=== PATIENT | male | born 1960 | race Caucasian/White ===

== ENCOUNTER → 2018-02-10 | Outpatient (CLI) | payer OTHER ==
[~2018-02-10] MED LIST: B-1100 MG PO; LIBRIUM10 MG PO; MULTIPLE VITAMI1 TAB PO; NATURE'S BLEND F1 MG PO
== END | disposition home or self-care (01) ==
LOC: RAD 10:17
DX: M25.551 Pain in right hip (principal)

== ENCOUNTER → 2018-07-06 | Outpatient (CLI) | payer OTHER | END | disposition home or self-care (01) | LOC: MRI 09:28 | DX: M47.817 Spondylosis without myelopathy or radiculopathy, lumbosacral region (principal) ==

== ENCOUNTER → 2018-07-12 | Outpatient (CLI) | payer OTHER ==
[~2018-07-12] MED LIST changes: +ACETAMINOPHEN500 M5 PO; +COLACE100 MG PO; +FLUTIC; +IBUPROFEN600 MG PO; +NORCO 5-325 TA1 EACH PO; +OYSTER SHELL 51 EACH PO; +SALME; +TAMSULOSIN HCL0.4 MG PO; +VITAMIN D35000 UNIT PO; +ZYRTEC10 MG PO; +[UNRECOGNIZED DRUG - OTHER] INH
== END | disposition home or self-care (01) ==
LOC: RAD 12:35
DX: Z13.820 Encounter for screening for osteoporosis (principal); S22.000A Wedge compression fracture of unspecified thoracic vertebra, initial encounter for closed fracture; X58.XXXA Exposure to other specified factors, initial encounter; Y93.89 Activity, other specified; Y92.89 Other specified places as the place of occurrence of the external cause; Y99.8 Other external cause status; Z87.891 Personal history of nicotine dependence

== ENCOUNTER 2018-12-27 16:46 | Emergency (ER) | payer OTHER ==
[~2018-12-27] VITALS: Ht 185.4 cm; Wt 99.8 kg
[2018-12-27 17:14] LABS: BASO % 0.3 % (0.0-1.0); EOS # 0.1 10*3/uL (0.0-0.4); EOS % 1.1 % (1.0-4.0); HEMATOCRIT 53.5 % (42.0-52.0); HEMOGLOBIN 17.2 g/dl (14.0-18.0); LYMPH # 2.6 10*3/uL (1.3-4.4); LYMPH % 24.2 % (27.0-41.0); MEAN CELL VOLUME 94.5 fl (80.0-94.0); MEAN CORPUSCULAR HGB 30.4 pg (27.0-31.0); MEAN CORPUSCULAR HGB CONC 32.1 g/dl (33.0-37.0); MEAN PLATELET VOLUME 10.1 fl (9.6-12.3); MONO # 0.9 10*3/uL (0.1-1.0); MONO % 8.3 % (3.0-9.0); NEUT # 7.1 10*3/uL (2.3-7.9); NEUT % 65.8 % (47.0-73.0); PLATELET COUNT AUTOMATED 194 10*3/uL (130-400); RED BLOOD COUNT 5.66 10*6/uL (4.50-5.90); RED CELL DISTRI WIDTH 13.2 % (0-14.5); WHITE BLOOD COUNT 10.8 10*3/uL (4.8-10.8)
[2018-12-27 17:27] LABS: ACT PARTIAL THROMBO TIME 21.3 SECONDS (20.0-32.1); INTERNATIONAL NORM RATIO 0.9 (2.0-3.5)
[2018-12-27 17:30] LABS: ALBUMIN 4.2 gm/dl (3.1-4.5); ALKALINE PHOSPHATASE 79 U/L (45-117); BUN 8 mg/dl (7-24); CHLORIDE 103 mmol/L (98-107); LIPASE 188 U/L (73-393); POTASSIUM 3.9 mmol/L (3.5-5.1); SGOT/AST 20 IU/L (3-35); SGPT/ALT 30 U/L (12-78); SODIUM 136 mmol/L (136-145); TOTAL PROTEIN 7.8 gm/dL (6.4-8.2)
[2018-12-27 19:21] LABS: BILIRUBIN NEGATIVE (NEGATIVE); BLOOD NEGATIVE (NEGATIVE); CLARITY CLEAR (CLEAR); COLOR YELLOW (YELLOW); GLUCOSE NEGATIVE (NEGATIVE); KETONE NEGATIVE (NEGATIVE); LEUKO ESTERASE NEGATIVE (NEGATIVE); NITRITE NEGATIVE (NEGATIVE); PH 6.5 (5.0-9.0); SPECIFIC GRAVITY <= 1.005 (1.005-1.030); UROBILINOGEN 0.2 E.U./dl (0.2-1.0)
[2018-12-27 19:28] LABS: EPITHELIAL CELLS 0-2
[2018-12-27] MEDS ORDERED: NORCO 5-325 TA1 EACH PO (20:52)
== END 2018-12-27 21:04 | disposition home or self-care (01) ==
LOC: ED 16:46
PROVIDERS: Physician Assistant
DX: K40.21 Bilateral inguinal hernia, without obstruction or gangrene, recurrent (principal); Z79.899 Other long term (current) drug therapy

== ENCOUNTER → 2019-01-23 | Day surgery (SDC) | payer OTHER ==
[2019-01-19 12:46] LABS: BUN 7 mg/dl (7-24); CHLORIDE 104 mmol/L (98-107); CREATININE 0.81 mg/dL (0.70-1.30); POTASSIUM 3.8 mmol/L (3.5-5.1); SODIUM 139 mmol/L (136-145)
[2019-01-23] VITALS (7 sets, daily range): BP systolic 112–120; BP diastolic 54–87
[~2019-01-23] VITALS: Ht 185.4 cm; Wt 99.8 kg
[~2019-01-23] MED LIST changes: +NORCO 7.5-3251 EACH PO
--- NOTE | ~2019-01-23 | EKG ---
[place], [place] ELECTROCARDIOGRAM REPORT NAME: AYANA DYSON UNIT #: [id number] ROOM: DOCTOR: EPIPHANY DRAFT REPORT BIRTHDATE: [birth year] [facility] Test Date: 2019-01-19 Test Time: 12:27:11 Pat Name: AYANA DYSON Department: Room: Gender: M Windows Infrastructure Engineer: Vanessa Tsang : 1960 Requested By: VILLA TERRELL Order Number: [id number] Reading MD: Gabino Yancey Measurements Intervals Wheeler Rate: 72 P: 65 DE: 148 QRS: -30 QRSD: 100 T: 34 QT: 387 QTc: 424 Interpretive Statements Sinus rhythm Abnormal R-wave progression, early transition Inferior infarct, old Compared to ECG 11/17/2018 11:13:13 Myocardial infarct finding now present Electronically Signed On 01-20-2019 12:27:38 PDT by Gabino Yancey CM:EKGRPT:ELECTROCARDIOGRAM REPORT 1227 1227 VILLA TERRELL MD EPIPHANY DRAFT REPORT VILLA TERRELL MD
== END | disposition home or self-care (01) ==
LOC: SDC 01-19 13:15
DX: K40.91 Unilateral inguinal hernia, without obstruction or gangrene, recurrent (principal); D17.6 Benign lipomatous neoplasm of spermatic cord; K44.9 Diaphragmatic hernia without obstruction or gangrene; J44.9 Chronic obstructive pulmonary disease, unspecified; Z98.890 Other specified postprocedural states; Z79.899 Other long term (current) drug therapy; Z82.5 Family history of asthma and other chronic lower respiratory diseases; Z83.3 Family history of diabetes mellitus

== ENCOUNTER → 2020-03-12 | Outpatient (CLI) | payer OTHER ==
[2020-03-12 10:46] LABS: BASO % 0.1 % (0.0-1.0); EOS # 0.1 10*3/uL (0.0-0.4); EOS % 1.7 % (1.0-4.0); HEMATOCRIT 50.2 % (42.0-52.0); LYMPH # 1.9 10*3/uL (1.3-4.4); MEAN CELL VOLUME 98.4 fl (80.0-94.0); MEAN CORPUSCULAR HGB 31.6 pg (27.0-31.0); MEAN CORPUSCULAR HGB CONC 32.1 g/dl (33.0-37.0); MEAN PLATELET VOLUME 9.3 fl (9.6-12.3); MONO # 0.8 10*3/uL (0.1-1.0); MONO % 10.4 % (3.0-9.0); NEUT # 4.6 10*3/uL (2.3-7.9); NEUT % 62.3 % (47.0-73.0); PLATELET COUNT AUTOMATED 191 10*3/uL (130-400); RED CELL DISTRI WIDTH 14.1 % (0-14.5); WHITE BLOOD COUNT 7.5 10*3/uL (4.8-10.8)
[2020-03-12 11:03] LABS: ALBUMIN 3.6 gm/dl (3.1-4.5); ALKALINE PHOSPHATASE 74 U/L (45-117); BUN 8 mg/dl (7-24); CHLORIDE 105 mmol/L (98-107); CHOLESTEROL 157 mg/dL (<200); CREATININE 0.86 mg/dL (0.70-1.30); FREE T4 1.08 ng/dl (0.76-1.46); HDL CHOLESTEROL 72 mg/dl (40-60); LDL CHOLESTEROL 56 mg/dL (9-159); POTASSIUM 3.6 mmol/L (3.5-5.1); SGOT/AST 18 IU/L (3-35); SGPT/ALT 29 U/L (12-78); SODIUM 140 mmol/L (136-145); TOTAL PROTEIN 6.7 gm/dL (6.4-8.2); TRIGLYCERIDES 144 mg/dl (<150); VLDL CHOLESTEROL 29 mg/dL (6-40)
[2020-03-13 13:09] LABS: PROSTATE SPECIFIC AG FREE 0.67 ng/mL; PROSTATE SPECIFIC AG, SERUM 3.8 ng/mL (0.0-4.0)
== END | disposition home or self-care (01) ==
LOC: LAB 10:27
PROVIDERS: ATTEND Family Medicine
DX: M25.511 Pain in right shoulder (principal); R42 Dizziness and giddiness; E55.9 Vitamin D deficiency, unspecified; N40.0 Benign prostatic hyperplasia without lower urinary tract symptoms; E66.9 Obesity, unspecified

== ENCOUNTER → 2021-12-16 | Outpatient (CLI) | payer OTHER | END | disposition home or self-care (01) | LOC: US 02:34 | PROVIDERS: ATTEND Internal Medicine | DX: K40.90 Unilateral inguinal hernia, without obstruction or gangrene, not specified as recurrent (principal); N50.3 Cyst of epididymis; N43.3 Hydrocele, unspecified ==

== ENCOUNTER → 2021-12-24 | Outpatient (CLI) | payer OTHER ==
[2021-12-24 15:00] LABS: BASO % 0.2 % (0.0-1.0); EOS # 0.1 10*3/uL (0.0-0.4); EOS % 0.6 % (1.0-4.0); HEMATOCRIT 51.8 % (42.0-52.0); LYMPH # 1.3 10*3/uL (1.3-4.4); LYMPH % 16.2 % (27.0-41.0); MEAN CELL VOLUME 107.2 fl (80.0-94.0); MEAN CORPUSCULAR HGB 36.4 pg (27.0-31.0); MEAN PLATELET VOLUME 9.2 fl (9.6-12.3); MONO # 0.8 10*3/uL (0.1-1.0); MONO % 9.8 % (3.0-9.0); NEUT # 5.8 10*3/uL (2.3-7.9); NEUT % 72.5 % (47.0-73.0); PLATELET COUNT AUTOMATED 154 10*3/uL (130-400); RED BLOOD COUNT 4.83 10*6/uL (4.50-5.90); RED CELL DISTRI WIDTH 13.2 % (0-14.5)
[2021-12-24 15:21] LABS: ALKALINE PHOSPHATASE 100 U/L (45-117); BUN 10 mg/dl (7-24); CHLORIDE 104 mmol/L (98-107); CREATININE 0.71 mg/dL (0.70-1.30); SGOT/AST 32 IU/L (3-35); SGPT/ALT 31 U/L (12-78); SODIUM 136 mmol/L (136-145); TOTAL PROTEIN 7.1 gm/dL (6.4-8.2)
[2021-12-28 22:05] LABS: FREE PSA 0.419 ng/mL (.)
== END | disposition home or self-care (01) ==
LOC: LAB 14:34
PROVIDERS: ATTEND Urology
DX: R97.20 Elevated prostate specific antigen [PSA] (principal); R53.83 Other fatigue

== ENCOUNTER → 2022-02-04 | Day surgery (SDC) | payer OTHER ==
[2022-02-02 14:41] VITALS: BP 154/88
[~2022-02-04] VITALS: Ht 182.8 cm; Wt 93.0 kg
[2022-02-04] VITALS (7 sets, daily range): BP systolic 122–141; BP diastolic 73–92
[~2022-02-04] MED LIST changes: +ATIVAN0.5 MG PO; +ONDANSETRON HYDR4 M1 PO; +PERCOCET 5-3251 EACH PO; +THE MEDICINE SH10 M1 PO
== END | disposition home or self-care (01) ==
LOC: SDC 01-25 13:15
PROVIDERS: ATTEND Surgery
DX: K40.31 Unilateral inguinal hernia, with obstruction, without gangrene, recurrent (principal); J44.9 Chronic obstructive pulmonary disease, unspecified; F41.9 Anxiety disorder, unspecified; M19.90 Unspecified osteoarthritis, unspecified site; F32.9 Major depressive disorder, single episode, unspecified; Z79.899 Other long term (current) drug therapy

== ENCOUNTER → 2022-03-30 | Outpatient (CLI) | payer OTHER ==
[2022-03-30 15:28] LABS: BASO % 0.1 % (0.0-1.0); EOS % 0.2 % (1.0-4.0); HEMATOCRIT 52.7 % (42.0-52.0); LYMPH # 1.3 10*3/uL (1.3-4.4); LYMPH % 16.2 % (27.0-41.0); MEAN CELL VOLUME 105.8 fl (80.0-94.0); MEAN CORPUSCULAR HGB 35.3 pg (27.0-31.0); MEAN CORPUSCULAR HGB CONC 33.4 g/dl (33.0-37.0); MEAN PLATELET VOLUME 8.9 fl (9.6-12.3); MONO # 0.8 10*3/uL (0.1-1.0); MONO % 9.8 % (3.0-9.0); NEUT # 5.9 10*3/uL (2.3-7.9); NEUT % 73.3 % (47.0-73.0); PLATELET COUNT AUTOMATED 165 10*3/uL (130-400); RED BLOOD COUNT 4.98 10*6/uL (4.50-5.90); RED CELL DISTRI WIDTH 13.8 % (0-14.5); WHITE BLOOD COUNT 8.1 10*3/uL (4.8-10.8)
[2022-03-30 15:45] LABS: ALKALINE PHOSPHATASE 92 U/L (45-117); BUN 10 mg/dl (7-24); CHLORIDE 103 mmol/L (98-107); CREATININE 0.82 mg/dL (0.70-1.30); POTASSIUM 4.1 mmol/L (3.5-5.1); SGOT/AST 19 IU/L (3-35); SGPT/ALT 24 U/L (12-78); SODIUM 139 mmol/L (136-145); TOTAL PROTEIN 7.5 gm/dL (6.4-8.2)
== END | disposition home or self-care (01) ==
LOC: LAB 14:53
PROVIDERS: ATTEND Urology
DX: I10 Essential (primary) hypertension (principal); R53.83 Other fatigue; R97.20 Elevated prostate specific antigen [PSA]

== ENCOUNTER 2022-06-09 14:35 | Emergency (ER) | payer OTHER ==
[~2022-06-09] VITALS: Ht 182.8 cm; Wt 92.5 kg
[2022-06-09] MEDS ORDERED: IBUPROFEN600 MG PO (17:59)
== END 2022-06-09 18:15 | disposition home or self-care (01) ==
LOC: ED 14:35
DX: S46.211A Strain of muscle, fascia and tendon of other parts of biceps, right arm, initial encounter (principal); Z79.899 Other long term (current) drug therapy; X58.XXXA Exposure to other specified factors, initial encounter; Y93.89 Activity, other specified; Y92.89 Other specified places as the place of occurrence of the external cause; Y99.8 Other external cause status

== ENCOUNTER → 2022-09-29 | Outpatient (CLI) | payer OTHER ==
[~2022-09-29] MED LIST changes: +DULE1ARO INH; +SENNA LAX8.6 M1 PO; +TRAZODONE50 MG PO
== END | disposition home or self-care (01) ==
LOC: CARD 01:49
PROVIDERS: ATTEND Internal Medicine
DX: R06.02 Shortness of breath (principal)

== ENCOUNTER 2023-05-23 12:43 | Emergency (ER) | payer OTHER ==
[~2023-05-23] VITALS: Ht 187.9 cm; Wt 68.9 kg
[~2023-05-23 12:43] MED LIST changes: +CYMBALTA30 MG PO; +NATURE'S BLEND100 M2 PO; +OYSTER SHELL 51 EAC5 PO; -SENNA LAX8.6 M1 PO; +SENNA8.6 MG PO; +TAB-A-VITE TA400 MCG PO; +TENORMIN25 MG PO
[2023-05-23 13:36] LABS: BASO % 0.3 % (0.0-1.0); EOS % 0.3 % (1.0-4.0); HEMATOCRIT 47.4 % (42.0-52.0); LYMPH # 0.5 10*3/uL (1.3-4.4); LYMPH % 12.4 % (27.0-41.0); MEAN CORPUSCULAR HGB 32.9 pg (27.0-31.0); MEAN CORPUSCULAR HGB CONC 32.9 g/dl (33.0-37.0); MEAN PLATELET VOLUME 9.6 fl (9.6-12.3); MONO # 0.5 10*3/uL (0.1-1.0); MONO % 13.1 % (3.0-9.0); NEUT # 2.9 10*3/uL (2.3-7.9); NEUT % 73.6 % (47.0-73.0); PLATELET COUNT AUTOMATED 88 10*3/uL (130-400); RED BLOOD COUNT 4.74 10*6/uL (4.50-5.90); RED CELL DISTRI WIDTH 13.3 % (0-14.5)
[2023-05-23 13:52] LABS: ACT PARTIAL THROMBO TIME 29.6 SECONDS (20.0-32.1)
[2023-05-23 13:58] LABS: ALKALINE PHOSPHATASE 133 U/L (46-116); CHLORIDE 104 mmol/L (98-107); LIPASE 40 U/L (12-53); POTASSIUM 3.1 mmol/L (3.4-5.1); SGPT/ALT 28 U/L (5-49); TOTAL PROTEIN 5.8 gm/dL (6.0-8.0)
[2023-05-23 14:00] LABS: BUN < 5 mg/dl (9-23)
[2023-05-23] MEDS ORDERED: PERCOCET 5-3251 EACH PO (16:28)
== END 2023-05-23 17:41 | disposition home or self-care (01) ==
LOC: ED 12:43
PROVIDERS: Internal Medicine
DX: S32.019A Unspecified fracture of first lumbar vertebra, initial encounter for closed fracture (principal); R60.0 Localized edema; J44.9 Chronic obstructive pulmonary disease, unspecified; F41.9 Anxiety disorder, unspecified; M19.90 Unspecified osteoarthritis, unspecified site; Z98.890 Other specified postprocedural states; F17.210 Nicotine dependence, cigarettes, uncomplicated; Z20.822 Contact with and (suspected) exposure to COVID-19; W19.XXXA Unspecified fall, initial encounter; Y93.89 Activity, other specified; Y92.009 Unspecified place in unspecified non-institutional (private) residence as the place of occurrence of the external cause; Y99.8 Other external cause status

== ENCOUNTER 2023-05-24 18:47 | Emergency (ER) | payer OTHER ==
[~2023-05-24] VITALS: Ht 190.5 cm; Wt 88.5 kg
[2023-05-24 20:44] LABS: BASO % 0.2 % (0.0-1.0); EOS % 0.2 % (1.0-4.0); HEMATOCRIT 52.2 % (42.0-52.0); LYMPH # 0.5 10*3/uL (1.3-4.4); MEAN CELL VOLUME 100.2 fl (80.0-94.0); MEAN CORPUSCULAR HGB 33.2 pg (27.0-31.0); MEAN CORPUSCULAR HGB CONC 33.1 g/dl (33.0-37.0); MEAN PLATELET VOLUME 10.3 fl (9.6-12.3); MONO % 8.4 % (3.0-9.0); NEUT # 10.7 10*3/uL (2.3-7.9); NEUT % 86.2 % (47.0-73.0); PLATELET COUNT AUTOMATED 78 10*3/uL (130-400); RED BLOOD COUNT 5.21 10*6/uL (4.50-5.90); RED CELL DISTRI WIDTH 13.4 % (0-14.5); WHITE BLOOD COUNT 12.4 10*3/uL (4.8-10.8)
[2023-05-24 21:09] LABS: ALKALINE PHOSPHATASE 142 U/L (46-116); CHLORIDE 99 mmol/L (98-107); POTASSIUM 3.2 mmol/L (3.4-5.1); SGPT/ALT 36 U/L (5-49); TOTAL PROTEIN 6.8 gm/dL (6.0-8.0)
[2023-05-24 21:16] LABS: BUN < 5 mg/dl (9-23)
== END 2023-05-24 23:14 | disposition home or self-care (01) ==
LOC: ED 18:47
PROVIDERS: Physician Assistant Medical
DX: S32.019D Unspecified fracture of first lumbar vertebra, subsequent encounter for fracture with routine healing (principal); M54.50 Low back pain, unspecified; J44.9 Chronic obstructive pulmonary disease, unspecified; F41.9 Anxiety disorder, unspecified; J10.1 Influenza due to other identified influenza virus with other respiratory manifestations; Z98.890 Other specified postprocedural states; F10.10 Alcohol abuse, uncomplicated; W19.XXXD Unspecified fall, subsequent encounter

== ENCOUNTER 2023-05-26 23:27 | Inpatient (IN) | payer OTHER ==
[~2023-05-26] VITALS: Ht 187.9 cm; Wt 69.5 kg
[2023-05-26 22:00] VITALS: BP 109/54
[2023-05-26 23:27] VITALS: BP 86/60
[2023-05-27] VITALS (19 sets, daily range): BP systolic 84–113; BP diastolic 54–81
[2023-05-27 00:09] LABS: BASO % 0.2 % (0.0-1.0); EOS % 0.2 % (1.0-4.0); HEMATOCRIT 53.2 % (42.0-52.0); LYMPH # 0.4 10*3/uL (1.3-4.4); LYMPH % 3.7 % (27.0-41.0); MEAN CELL VOLUME 100.6 fl (80.0-94.0); MEAN CORPUSCULAR HGB 33.1 pg (27.0-31.0); MEAN CORPUSCULAR HGB CONC 32.9 g/dl (33.0-37.0); MONO # 0.5 10*3/uL (0.1-1.0); MONO % 5.4 % (3.0-9.0); NEUT % 89.7 % (47.0-73.0); PLATELET COUNT AUTOMATED 70 10*3/uL (130-400); RED BLOOD COUNT 5.29 10*6/uL (4.50-5.90); RED CELL DISTRI WIDTH 13.4 % (0-14.5)
[2023-05-27 00:25] LABS: ACT PARTIAL THROMBO TIME 32.1 SECONDS (20.0-32.1)
[2023-05-27 00:34] LABS: ALKALINE PHOSPHATASE 108 U/L (46-116); BUN 10 mg/dl (9-23); CHLORIDE 97 mmol/L (98-107); ETHYL ALCOHOL < 3.0 mg/dl (<3); LIPASE 57 U/L (12-53); POTASSIUM 3.3 mmol/L (3.4-5.1); SGPT/ALT 43 U/L (5-49); TOTAL PROTEIN 6.5 gm/dL (6.0-8.0)
[2023-05-27 07:08] LABS: ARTERIAL BLOOD GAS PH 7.364 (7.35-7.45)
[2023-05-27 07:21] LABS: HEMATOCRIT 43.9 % (42.0-52.0); MEAN CELL VOLUME 100.7 fl (80.0-94.0); MEAN CORPUSCULAR HGB 33.3 pg (27.0-31.0); MEAN PLATELET VOLUME 10.6 fl (9.6-12.3); NUCLEATED RED BLOOD CELL 0.3 % (0.0-0.0); PLATELET COUNT AUTOMATED 54 10*3/uL (130-400); RED BLOOD COUNT 4.36 10*6/uL (4.50-5.90); RED CELL DISTRI WIDTH 13.4 % (0-14.5); WHITE BLOOD COUNT 7.8 10*3/uL (4.8-10.8)
[2023-05-27 07:28] LABS: MANUAL DIFF REFLEX YES
[2023-05-27 07:37] LABS: ALKALINE PHOSPHATASE 76 U/L (46-116); BUN 7 mg/dl (9-23); CHLORIDE 103 mmol/L (98-107); POTASSIUM 3.3 mmol/L (3.4-5.1); SGPT/ALT 34 U/L (5-49); TOTAL PROTEIN 5.1 gm/dL (6.0-8.0)
[2023-05-27 07:45] LABS: PLATELET SUFFICIENCY LOW (NORMAL); TOTAL CELLS COUNTED 100 #CELLS
[2023-05-27 08:06] LABS: BILIRUBIN 1+ (Negative); BLOOD 2+ (Negative); CLARITY Clear (Clear); COLOR Dark Yellow (Yellow); GLUCOSE Negative (Negative); KETONE Trace (Negative); LEUKO ESTERASE Negative (Negative); NITRITE Negative (Negative); PH 6.5 (4.5-8.0)
[2023-05-27 08:13] LABS: URINE AMPHETAMINES Negative (1000ng/ml); URINE BARBITURATES Negative (200ng/ml); URINE BENZODIAZEPINES Negative (200ng/ml); URINE CANNABINOIDS (THC) Positive (50ng/ml); URINE COCAINE Negative (300ng/ml); URINE METHADONE Negative (300ng/ml); URINE OPIATES Negative (300ng/ml); URINE PHENCYCLIDINE Negative (25ng/ml)
[2023-05-27 08:19] LABS: BACTERIA 2+
[2023-05-27 08:20] LABS: MUCOUS 2+
[2023-05-28] VITALS (11 sets, daily range): BP systolic 68–113; BP diastolic 47–78
[2023-05-28 05:56] LABS: ALKALINE PHOSPHATASE 79 U/L (46-116); BUN 10 mg/dl (9-23); CHLORIDE 103 mmol/L (98-107); POTASSIUM 3.8 mmol/L (3.4-5.1); SGPT/ALT 41 U/L (5-49); TOTAL PROTEIN 5.2 gm/dL (6.0-8.0)
[2023-05-28 06:27] LABS: BASO % 0.3 % (0.0-1.0); EOS # 0.1 10*3/uL (0.0-0.4); EOS % 0.8 % (1.0-4.0); HEMATOCRIT 50.1 % (42.0-52.0); LYMPH # 0.6 10*3/uL (1.3-4.4); LYMPH % 4.4 % (27.0-41.0); MEAN CELL VOLUME 103.7 fl (80.0-94.0); MEAN CORPUSCULAR HGB 32.7 pg (27.0-31.0); MEAN CORPUSCULAR HGB CONC 31.5 g/dl (33.0-37.0); MEAN PLATELET VOLUME 11.5 fl (9.6-12.3); MONO # 0.8 10*3/uL (0.1-1.0); MONO % 5.9 % (3.0-9.0); NEUT # 11.3 10*3/uL (2.3-7.9); NUCLEATED RED BLOOD CELL 0.3 % (0.0-0.0); PLATELET COUNT AUTOMATED 67 10*3/uL (130-400); RED BLOOD COUNT 4.83 10*6/uL (4.50-5.90); RED CELL DISTRI WIDTH 13.5 % (0-14.5)
[2023-05-29] VITALS (14 sets, daily range): BP systolic 82–107; BP diastolic 54–68
[2023-05-29 06:11] LABS: BUN 11 mg/dl (9-23); CHLORIDE 110 mmol/L (98-107); POTASSIUM 3.6 mmol/L (3.4-5.1)
[2023-05-29 06:27] LABS: HEMATOCRIT 43.8 % (42.0-52.0); MEAN CORPUSCULAR HGB 32.5 pg (27.0-31.0); MEAN CORPUSCULAR HGB CONC 30.4 g/dl (33.0-37.0); MEAN PLATELET VOLUME 12.2 fl (9.6-12.3); NUCLEATED RED BLOOD CELL 0.4 % (0.0-0.0); PLATELET COUNT AUTOMATED 52 10*3/uL (130-400); RED BLOOD COUNT 4.09 10*6/uL (4.50-5.90); RED CELL DISTRI WIDTH 13.3 % (0-14.5); WHITE BLOOD COUNT 4.7 10*3/uL (4.8-10.8)
[2023-05-29 06:29] LABS: MANUAL DIFF REFLEX YES; MEAN CELL VOLUME 107.1 fl (80.0-94.0)
[2023-05-29 07:42] LABS: ATYPICAL LYMPHS 3 % (0-0); TOTAL CELLS COUNTED 100 #CELLS
[2023-05-29 07:43] LABS: PLATELET SUFFICIENCY LOW (NORMAL); POLYCHROMASIA SLIGHT
[2023-05-30] VITALS (33 sets, daily range): BP systolic 85–119; BP diastolic 50–83
[2023-05-30 04:20] LABS: MEAN CORPUSCULAR HGB CONC 30.9 g/dl (33.0-37.0)
[2023-05-30 04:21] LABS: MANUAL DIFF REFLEX YES
[2023-05-30 04:22] LABS: BASO % 0.4 % (0.0-1.0); HEMATOCRIT 47.2 % (42.0-52.0); LYMPH # 0.8 10*3/uL (1.3-4.4); LYMPH % 15.6 % (27.0-41.0); MEAN CELL VOLUME 107.5 fl (80.0-94.0); MEAN CORPUSCULAR HGB 33.3 pg (27.0-31.0); MEAN PLATELET VOLUME 11.6 fl (9.6-12.3); MONO # 0.5 10*3/uL (0.1-1.0); MONO % 8.7 % (3.0-9.0); NEUT # 3.9 10*3/uL (2.3-7.9); RED BLOOD COUNT 4.39 10*6/uL (4.50-5.90); RED CELL DISTRI WIDTH 13.3 % (0-14.5); WHITE BLOOD COUNT 5.3 10*3/uL (4.8-10.8)
[2023-05-30 04:23] LABS: PLATELET COUNT AUTOMATED 68 10*3/uL (130-400)
[2023-05-30 04:39] LABS: BUN 8 mg/dl (9-23); CHLORIDE 107 mmol/L (98-107); POTASSIUM 3.5 mmol/L (3.4-5.1)
[2023-05-30 05:05] LABS: ATYPICAL LYMPHS 5 % (0-0); PLATELET SUFFICIENCY LOW (NORMAL); TOTAL CELLS COUNTED 100 #CELLS
[2023-05-31] VITALS (10 sets, daily range): BP systolic 90–145; BP diastolic 62–91
[2023-05-31 06:01] LABS: CHLORIDE 108 mmol/L (98-107); POTASSIUM 3.2 mmol/L (3.4-5.1)
[2023-05-31 06:05] LABS: BUN < 5 mg/dl (9-23)
[2023-05-31 06:37] LABS: BASO % 0.5 % (0.0-1.0); EOS % 0.2 % (1.0-4.0); HEMATOCRIT 43.7 % (42.0-52.0); LYMPH # 0.7 10*3/uL (1.3-4.4); LYMPH % 16.5 % (27.0-41.0); MEAN CORPUSCULAR HGB 32.9 pg (27.0-31.0); MEAN CORPUSCULAR HGB CONC 31.4 g/dl (33.0-37.0); MEAN PLATELET VOLUME 11.2 fl (9.6-12.3); MONO # 0.3 10*3/uL (0.1-1.0); MONO % 8.5 % (3.0-9.0); NEUT # 2.9 10*3/uL (2.3-7.9); NEUT % 72.3 % (47.0-73.0); PLATELET COUNT AUTOMATED 73 10*3/uL (130-400); RED BLOOD COUNT 4.16 10*6/uL (4.50-5.90); RED CELL DISTRI WIDTH 13.1 % (0-14.5)
[2023-06-01] VITALS: BP 138/92
[2023-06-01 04:00] VITALS: BP 132/86
[2023-06-01 06:19] LABS: CHLORIDE 105 mmol/L (98-107); POTASSIUM 3.3 mmol/L (3.4-5.1)
[2023-06-01 06:20] LABS: BUN < 5 mg/dl (9-23)
[2023-06-01 06:48] LABS: BASO % 0.2 % (0.0-1.0); EOS % 0.4 % (1.0-4.0); HEMATOCRIT 45.3 % (42.0-52.0); LYMPH # 0.9 10*3/uL (1.3-4.4); LYMPH % 18.8 % (27.0-41.0); MEAN CELL VOLUME 103.2 fl (80.0-94.0); MEAN PLATELET VOLUME 11.1 fl (9.6-12.3); MONO # 0.5 10*3/uL (0.1-1.0); MONO % 9.2 % (3.0-9.0); NEUT # 3.4 10*3/uL (2.3-7.9); NEUT % 68.6 % (47.0-73.0); PLATELET COUNT AUTOMATED 93 10*3/uL (130-400); RED BLOOD COUNT 4.39 10*6/uL (4.50-5.90); RED CELL DISTRI WIDTH 13.2 % (0-14.5)
[2023-06-01 08:00] VITALS: BP 153/90
[2023-06-01 12:00] VITALS: BP 124/88
[2023-06-01 16:00] VITALS: BP 129/84
[2023-06-01 20:00] VITALS: BP 128/82
[2023-06-02] VITALS: BP 145/86
[2023-06-02 06:06] LABS: ALKALINE PHOSPHATASE 68 U/L (46-116); BASO % 0.2 % (0.0-1.0); BUN < 5 mg/dl (9-23); CHLORIDE 101 mmol/L (98-107); EOS % 0.4 % (1.0-4.0); HEMATOCRIT 41.8 % (42.0-52.0); LYMPH # 0.9 10*3/uL (1.3-4.4); LYMPH % 18.7 % (27.0-41.0); MEAN CELL VOLUME 103.5 fl (80.0-94.0); MEAN CORPUSCULAR HGB 33.2 pg (27.0-31.0); MEAN CORPUSCULAR HGB CONC 32.1 g/dl (33.0-37.0); MEAN PLATELET VOLUME 10.9 fl (9.6-12.3); MONO # 0.5 10*3/uL (0.1-1.0); MONO % 9.9 % (3.0-9.0); NEUT # 3.2 10*3/uL (2.3-7.9); NEUT % 68.6 % (47.0-73.0); PLATELET COUNT AUTOMATED 100 10*3/uL (130-400); POTASSIUM 3.2 mmol/L (3.4-5.1); RED BLOOD COUNT 4.04 10*6/uL (4.50-5.90); RED CELL DISTRI WIDTH 13.2 % (0-14.5); SGPT/ALT 18 U/L (5-49); TOTAL PROTEIN 4.9 gm/dL (6.0-8.0); WHITE BLOOD COUNT 4.7 10*3/uL (4.8-10.8)
[2023-06-02 08:00] VITALS: BP 126/75
[2023-06-02 12:00] VITALS: BP 122/83
[2023-06-02 16:00] VITALS: BP 114/78
[2023-06-02 20:00] VITALS: BP 124/80
[2023-06-03] VITALS: BP 122/82
[2023-06-03 04:00] VITALS: BP 126/80
[2023-06-03 06:21] LABS: BASO % 0.2 % (0.0-1.0); EOS % 0.4 % (1.0-4.0); HEMATOCRIT 39.5 % (42.0-52.0); LYMPH # 0.8 10*3/uL (1.3-4.4); LYMPH % 17.1 % (27.0-41.0); MEAN CELL VOLUME 101.8 fl (80.0-94.0); MEAN CORPUSCULAR HGB CONC 32.4 g/dl (33.0-37.0); MEAN PLATELET VOLUME 11.2 fl (9.6-12.3); MONO # 0.6 10*3/uL (0.1-1.0); MONO % 11.8 % (3.0-9.0); NEUT # 3.3 10*3/uL (2.3-7.9); PLATELET COUNT AUTOMATED 110 10*3/uL (130-400); RED BLOOD COUNT 3.88 10*6/uL (4.50-5.90); RED CELL DISTRI WIDTH 13.2 % (0-14.5); WHITE BLOOD COUNT 4.9 10*3/uL (4.8-10.8)
[2023-06-03 06:23] LABS: ALKALINE PHOSPHATASE 72 U/L (46-116); CHLORIDE 101 mmol/L (98-107); POTASSIUM 3.3 mmol/L (3.4-5.1); SGPT/ALT 16 U/L (5-49); TOTAL PROTEIN 4.8 gm/dL (6.0-8.0)
[2023-06-03 06:30] LABS: BUN < 5 mg/dl (9-23)
[2023-06-03 08:00] VITALS: BP 127/80
[2023-06-03 12:00] VITALS: BP 109/66
[2023-06-03 16:00] VITALS: BP 138/85
[2023-06-03 20:00] VITALS: BP 103/74
[2023-06-04] VITALS: BP 135/93
[2023-06-04 08:00] VITALS: BP 135/83
[2023-06-04 12:00] VITALS: BP 112/72
[2023-06-04 15:38] VITALS: BP 102/78
[2023-06-04 20:00] VITALS: BP 106/72
[2023-06-05] VITALS: BP 141/94
[2023-06-05 05:55] LABS: CHLORIDE 100 mmol/L (98-107); POTASSIUM 3.4 mmol/L (3.4-5.1)
[2023-06-05 05:58] LABS: BUN < 5 mg/dl (9-23)
[2023-06-05 08:00] VITALS: BP 130/81
[2023-06-05 12:00] VITALS: BP 104/64
[2023-06-05 16:00] VITALS: BP 117/82
[2023-06-05 20:00] VITALS: BP 101/78
[2023-06-06] VITALS: BP 118/78
[2023-06-06 08:00] VITALS: BP 101/62
[2023-06-06 11:49] VITALS: BP 92/50
[2023-06-06 14:12] LABS: ALKALINE PHOSPHATASE 110 U/L (46-116); BUN 7 mg/dl (9-23); CHLORIDE 101 mmol/L (98-107); POTASSIUM 3.9 mmol/L (3.4-5.1); SGPT/ALT 18 U/L (5-49); TOTAL PROTEIN 5.8 gm/dL (6.0-8.0)
[2023-06-06 15:49] VITALS: BP 90/53
[2023-06-06 19:45] VITALS: BP 99/66
[2023-06-07] VITALS: BP 110/76
[2023-06-07 08:00] VITALS: BP 126/77
[2023-06-07 12:00] VITALS: BP 98/62
[2023-06-07] MEDS ORDERED: NATURE'S BLEND F1 MG PO (12:57)
[2023-06-07] MEDS ORDERED: NATURE'S BLEND100 M2 PO (12:57)
[2023-06-07 15:32] VITALS: BP 100/64
[2023-06-07 15:41] VITALS: BP 102/68
== END 2023-06-07 21:09 | DRG 720 ==
LOC: ED 23:27 → EDHOLD 05-27 03:49 → 4E 05-27 03:49 → ICCU 05-27 03:49 → 4E 06-01 15:06
PROVIDERS: Internal Medicine; Internal Medicine Critical Care Medicine; ADMIT Internal Medicine; ATTEND Internal Medicine
PROC: 02HV33Z Insertion of Infusion Device into Superior Vena Cava, Percutaneous Approach (ICD-10-PCS; 2023-05-27)
PROC: B548ZZA Ultrasonography of Superior Vena Cava, Guidance (ICD-10-PCS; 2023-05-27)
PROC: 0HBRXZZ Excision of Toe Nail, External Approach (ICD-10-PCS; principal; 2023-05-28)
PROC: 0HBRXZZ Excision of Toe Nail, External Approach (ICD-10-PCS; 2023-05-28)
PROC: 0HBRXZZ Excision of Toe Nail, External Approach (ICD-10-PCS; 2023-05-28)
PROC: 0HBRXZZ Excision of Toe Nail, External Approach (ICD-10-PCS; 2023-05-28)
PROC: 0HBRXZZ Excision of Toe Nail, External Approach (ICD-10-PCS; 2023-05-28)
PROC: 0HBRXZZ Excision of Toe Nail, External Approach (ICD-10-PCS; 2023-05-28)
PROC: 0HBRXZZ Excision of Toe Nail, External Approach (ICD-10-PCS; 2023-05-28)
PROC: 0HBRXZZ Excision of Toe Nail, External Approach (ICD-10-PCS; 2023-05-28)
PROC: 0HBRXZZ Excision of Toe Nail, External Approach (ICD-10-PCS; 2023-05-28)
PROC: 0HBRXZZ Excision of Toe Nail, External Approach (ICD-10-PCS; 2023-05-28)
PROC: XW033E5 Introduction of Remdesivir Anti-infective into Peripheral Vein, Percutaneous Approach, New Technology Group 5 (ICD-10-PCS; 2023-05-28)
DX: A41.9 Sepsis, unspecified organism (principal); R65.21 Severe sepsis with septic shock; J10.00 Influenza due to other identified influenza virus with unspecified type of pneumonia; J96.01 Acute respiratory failure with hypoxia; E87.6 Hypokalemia; I95.9 Hypotension, unspecified; R29.6 Repeated falls; L60.3 Nail dystrophy; K75.81 Nonalcoholic steatohepatitis (NASH); K70.10 Alcoholic hepatitis without ascites; Z20.822 Contact with and (suspected) exposure to COVID-19; F10.221 Alcohol dependence with intoxication delirium; D61.818 Other pancytopenia; F10.231 Alcohol dependence with withdrawal delirium; I48.21 Permanent atrial fibrillation; F51.04 Psychophysiologic insomnia; R53.81 Other malaise; Z79.899 Other long term (current) drug therapy

== ENCOUNTER 2024-01-17 14:08 | Emergency (ER) | payer MEDICAID ==
[~2024-01-17] VITALS: Ht 190.5 cm; Wt 93.0 kg
[2024-01-17 16:15] LABS: BASO % 0.2 % (0.0-1.0); EOS # 0.1 10*3/uL (0.0-0.4); EOS % 0.5 % (1.0-4.0); LYMPH # 1.5 10*3/uL (1.3-4.4); LYMPH % 14.2 % (27.0-41.0); MEAN CELL VOLUME 94.5 fl (80.0-94.0); MEAN CORPUSCULAR HGB 30.9 pg (27.0-31.0); MEAN CORPUSCULAR HGB CONC 32.7 g/dl (33.0-37.0); MEAN PLATELET VOLUME 9.2 fl (9.6-12.3); MONO % 8.9 % (3.0-9.0); NEUT # 8.1 10*3/uL (2.3-7.9); NEUT % 75.6 % (47.0-73.0); PLATELET COUNT AUTOMATED 131 10*3/uL (130-400); RED CELL DISTRI WIDTH 14.2 % (0-14.5); WHITE BLOOD COUNT 10.7 10*3/uL (4.8-10.8)
[2024-01-17 16:26] LABS: ACT PARTIAL THROMBO TIME 26.2 SECONDS (20.0-32.1)
[2024-01-17 16:38] LABS: ALKALINE PHOSPHATASE 103 U/L (46-116); BUN 7 mg/dl (9-23); CHLORIDE 102 mmol/L (98-107); POTASSIUM 4.2 mmol/L (3.4-5.1); SGPT/ALT 8 U/L (5-49); TOTAL PROTEIN 6.8 gm/dL (6.0-8.0)
[2024-01-17 16:39] LABS: ETHYL ALCOHOL < 3.0 mg/dl (<3)
== END 2024-01-17 18:13 | disposition home or self-care (01) ==
LOC: ED 14:08
PROVIDERS: Emergency Medicine
DX: S63.502A Unspecified sprain of left wrist, initial encounter (principal); S09.90XA Unspecified injury of head, initial encounter; I48.91 Unspecified atrial fibrillation; L53.9 Erythematous condition, unspecified; Z79.899 Other long term (current) drug therapy; Z98.890 Other specified postprocedural states; W01.198A Fall on same level from slipping, tripping and stumbling with subsequent striking against other object, initial encounter; Y93.89 Activity, other specified; Y92.89 Other specified places as the place of occurrence of the external cause; Y99.8 Other external cause status

== ENCOUNTER 2024-05-02 10:37 | Inpatient (IN) | payer OTHER ==
[~2024-05-02] VITALS: Ht 172.7 cm; Wt 67.2 kg
[2024-05-02] VITALS (22 sets, daily range): BP systolic 44–115; BP diastolic 0–77
[2024-05-02] MEDS ORDERED: SODIUM CHLORIDE 0.9% 1,000 ML IV ONE ×2 (10:45→13:30)
[2024-05-02 11:18] LABS: BASO # 0.1 10*3/uL (0.0-0.1); BASO % 0.4 % (0.0-1.0); EOS # 0.1 10*3/uL (0.0-0.4); EOS % 0.7 % (1.0-4.0); HEMATOCRIT 54.9 % (42.0-52.0); MEAN CELL VOLUME 100.9 fl (80.0-94.0); MEAN CORPUSCULAR HGB 31.8 pg (27.0-31.0); MEAN CORPUSCULAR HGB CONC 31.5 g/dl (33.0-37.0); MEAN PLATELET VOLUME 9.4 fl (9.6-12.3); MONO # 0.8 10*3/uL (0.1-1.0); MONO % 5.9 % (3.0-9.0); NEUT # 11.9 10*3/uL (2.3-7.9); NEUT % 83.3 % (47.0-73.0); PLATELET COUNT AUTOMATED 90 10*3/uL (130-400); RED BLOOD COUNT 5.44 10*6/uL (4.50-5.90); RED CELL DISTRI WIDTH 14.6 % (0-14.5); WHITE BLOOD COUNT 14.2 10*3/uL (4.8-10.8)
[2024-05-02 11:58] LABS: BUN 11 mg/dl (9-23); CHLORIDE 101 mmol/L (98-107); POTASSIUM 3.6 mmol/L (3.4-5.1)
[2024-05-02] MEDS ORDERED: SODIUM CHLORIDE 0.9% 1,000 ML IV SCH (13:05)
[2024-05-02] MEDS ORDERED: DEXTROSE 50% 25 GM/50 ML SYR IV ONE (13:25)
[2024-05-02 14:11] LABS: BILIRUBIN Negative (Negative); BLOOD 1+ (Negative); CLARITY Clear (Clear); COLOR Yellow (Yellow); GLUCOSE Negative (Negative); KETONE Negative (Negative); LEUKO ESTERASE Negative (Negative); NITRITE Negative (Negative); PH 5.5 (4.5-8.0); SPECIFIC GRAVITY <= 1.005 (1.001-1.030); UROBILINOGEN 0.2 E.U./dl (0.0-1.0)
[2024-05-02 14:24] LABS: BACTERIA TRACE; MUCOUS TRACE; WBC 0-2 wbc/hpf (0-5)
[2024-05-02] MEDS ORDERED: Thiamine 100 MG TAB PO SCH (15:08)
[2024-05-02] MEDS ORDERED: FOLIC ACID 1 MG TAB PO SCH (15:08)
[2024-05-02] MEDS ORDERED: NOREPINEPHRINE BITARTRATE/D5W 250 ML IV SCH (15:20)
[2024-05-02 15:30] LABS: ARTERIAL BLOOD GAS PH 7.29 (7.350-7.450)
[2024-05-02 15:31] LABS: ABG BASE EXCESS -11.4 mmol/L (-2.0-3.0); ABG O2 SATURATION 88.6 % (94.0-98.0)
[2024-05-02 15:34] LABS: ARTERIAL BLOOD GAS PO2 48.4 mmHg (83.0-108.0)
[2024-05-02] MEDS ORDERED: Piperacillin Sodium/Tazobact 50 ML IV SCH (16:00)
[2024-05-02] MEDS ORDERED: SODIUM BICARBONATE 50 MEQ/50 ML VIAL IV ONE (16:05)
[2024-05-02 16:09] LABS: ABG O2 SATURATION 96.2 % (94.0-98.0); ARTERIAL BLOOD GAS PH 7.287 (7.350-7.450); ARTERIAL BLOOD GAS PO2 83.9 mmHg (83.0-108.0)
[2024-05-02] MEDS ORDERED: Lactated Ringer's Solution 1,000 ML IV ONE (19:00)
[2024-05-03] MEDS ORDERED: Tamsulosin Hydrochloride 0.4 MG CAP PO SCH (10:00)
[2024-05-03] MEDS ORDERED: Duloxetine Hydrochloride 30 MG CAP PO SCH (10:00)
== END 2024-05-03 00:18 | disposition other institution (70) | DRG 720 ==
LOC: ED 10:37 → EDHOLD 12:36
PROVIDERS: Emergency Medicine; Internal Medicine; Student in an Organized Health Care Education/Training Program; ADMIT Internal Medicine; ATTEND Internal Medicine
DX: A41.9 Sepsis, unspecified organism (principal); R57.1 Hypovolemic shock; E46 Unspecified protein-calorie malnutrition; F10.129 Alcohol abuse with intoxication, unspecified; I48.91 Unspecified atrial fibrillation; N40.0 Benign prostatic hyperplasia without lower urinary tract symptoms; J44.9 Chronic obstructive pulmonary disease, unspecified; E55.9 Vitamin D deficiency, unspecified; K76.0 Fatty (change of) liver, not elsewhere classified; K70.10 Alcoholic hepatitis without ascites; R29.6 Repeated falls; E16.2 Hypoglycemia, unspecified; Z68.1 Body mass index [BMI] 19.9 or less, adult; Z79.899 Other long term (current) drug therapy; Z79.01 Long term (current) use of anticoagulants; Z79.2 Long term (current) use of antibiotics; Z83.3 Family history of diabetes mellitus; Z82.5 Family history of asthma and other chronic lower respiratory diseases; Y90.0 Blood alcohol level of less than 20 mg/100 ml

== ENCOUNTER 2024-12-23 12:49 | Emergency (ER) | payer OTHER ==
[~2024-12-23] VITALS: Ht 187.9 cm; Wt 87.1 kg
[2024-12-23 13:21] LABS: BASO # 0.0 10*3/uL (0.0-0.1); BASO % 0.3 % (0.0-1.0); EOS # 0.1 10*3/uL (0.0-0.4); EOS % 0.8 % (1.0-4.0); MEAN CELL VOLUME 100.8 fl (80.0-94.0); MEAN CORPUSCULAR HGB 32.2 pg (27.0-31.0); MEAN PLATELET VOLUME 8.5 fl (9.6-12.3); MONO # 0.7 10*3/uL (0.1-1.0); MONO % 10.4 % (3.0-9.0); NEUT # 4.0 10*3/uL (2.3-7.9); NEUT % 63.4 % (47.0-73.0); NUCLEATED RED BLOOD CELL 0.0 % (0.0-0.0); NUCLEATED RED BLOOD CELL 0.0 10*3/uL (0.0-0.0); PLATELET COUNT AUTOMATED 252 10*3/uL (130-400); RED CELL DISTRI WIDTH 15.9 % (0-14.5)
[2024-12-23 13:42] LABS: BUN < 5 mg/dl (9-23)
[2024-12-23 13:56] LABS: BILIRUBIN Negative (Negative); BLOOD Negative (Negative); CLARITY Clear (Clear); COLOR Yellow (Yellow); KETONE Negative (Negative); LEUKO ESTERASE Negative (Negative); NITRITE Negative (Negative); PH 6.5 (4.5-8.0); SPECIFIC GRAVITY <= 1.005 (1.001-1.030); UROBILINOGEN 0.2 E.U./dl (0.0-1.0)
[2024-12-23 14:11] LABS: RBC 0-2 rbc/hpf (0-2); WBC 0-2 wbc/hpf (0-5)
== END 2024-12-23 14:32 | disposition home or self-care (01) ==
LOC: ED 12:49
PROVIDERS: Nurse Practitioner Family
DX: R35.0 Frequency of micturition (principal); F17.200 Nicotine dependence, unspecified, uncomplicated; Z79.899 Other long term (current) drug therapy